=== PATIENT | female | born 1975 | race Caucasian/White ===

== ENCOUNTER → 2021-07-18 | Outpatient (CLI) | payer OTHER ==
[~2021-07-18] MED LIST: NAPROSYN500 MG PO; ZOFRAN ODT4 MG SL
== END | disposition home or self-care (01) ==
LOC: COVID19 15:14
PROVIDERS: ATTEND Internal Medicine
DX: Z11.52 Encounter for screening for COVID-19 (principal)

== ENCOUNTER → 2021-08-07 | Outpatient (CLI) | payer OTHER | END | disposition home or self-care (01) | LOC: COVID19 16:18 | PROVIDERS: ATTEND Internal Medicine | DX: Z11.52 Encounter for screening for COVID-19 (principal) ==

== ENCOUNTER 2021-09-17 04:16 | Emergency (ER) | payer BC ==
[~2021-09-17] VITALS: Ht 160 cm; Wt 68.0 kg
[2021-09-17 04:23] VITALS: BP 156/88
[2021-09-17] MEDS ORDERED: PENICILLIN VK500 MG PO (04:40)
== END 2021-09-17 04:52 | disposition home or self-care (01) ==
LOC: ED 04:16
DX: K04.7 Periapical abscess without sinus (principal); F17.200 Nicotine dependence, unspecified, uncomplicated; Z91.040 Latex allergy status

== ENCOUNTER 2021-10-11 12:25 | Emergency (ER) | payer BC ==
[~2021-10-11] VITALS: Ht 165.1 cm; Wt 63.5 kg
[~2021-10-11 12:25] MED LIST changes: +PENICILLIN VK500 MG PO
[2021-10-11 12:39] VITALS: BP 175/88
[2021-10-11 13:57] LABS: BASO # 0.1 10*3/uL (0.0-0.1); BASO % 0.7 % (0.0-1.0); EOS % 0.5 % (1.0-4.0); HEMATOCRIT 40.9 % (37.0-47.0); LYMPH # 1.4 10*3/uL (1.3-4.4); MEAN CELL VOLUME 86.5 fl (81.0-99.0); MEAN CORPUSCULAR HGB 28.5 pg (27.0-31.0); MONO # 0.5 10*3/uL (0.1-1.0); MONO % 6.8 % (3.0-9.0); NEUT # 5.7 10*3/uL (2.3-7.9); NEUT % 73.9 % (47.0-73.0); PLATELET COUNT AUTOMATED 276 10*3/uL (130-400); RED BLOOD COUNT 4.73 10*6/uL (4.10-5.10); RED CELL DISTRI WIDTH 14.4 % (0-14.5); WHITE BLOOD COUNT 7.7 10*3/uL (4.8-10.8)
[2021-10-11 14:13] LABS: ALBUMIN 3.5 gm/dl (3.1-4.5); ALKALINE PHOSPHATASE 84 U/L (45-117); BUN 9 mg/dl (7-24); CHLORIDE 109 mmol/L (98-107); CREATININE 0.65 mg/dL (0.55-1.02); LIPASE 80 U/L (73-393); POTASSIUM 3.4 mmol/L (3.5-5.1); SGOT/AST 13 IU/L (3-35); SGPT/ALT 23 U/L (12-78); SODIUM 140 mmol/L (136-145); TOTAL PROTEIN 7.5 gm/dL (6.4-8.2)
[2021-10-11 14:13] LABS: BILIRUBIN Negative (Negative); BLOOD 2+ (Negative); CLARITY Clear (Clear); COLOR Yellow (Yellow); GLUCOSE Negative (Negative); KETONE Negative (Negative); LEUKO ESTERASE Negative (Negative); NITRITE Negative (Negative); PH 5.5 (4.5-8.0); SPECIFIC GRAVITY 1.015 (1.001-1.030); UROBILINOGEN 0.2 E.U./dl (0.0-1.0)
[2021-10-11 14:33] LABS: BACTERIA 3+
[2021-10-11 14:34] LABS: EPITHELIAL CELLS 0-2; MUCOUS 1+
[2021-10-11] MEDS ORDERED: PRILOSEC20 M1 PO (15:08)
== END 2021-10-11 15:10 | disposition home or self-care (01) ==
LOC: ED 12:25
PROVIDERS: Emergency Medicine
DX: R10.13 Epigastric pain (principal); R03.0 Elevated blood-pressure reading, without diagnosis of hypertension; Z91.040 Latex allergy status; Z87.891 Personal history of nicotine dependence

== ENCOUNTER 2022-03-20 17:03 | Emergency (ER) | payer BC ==
[~2022-03-20] VITALS: Ht 167.6 cm; Wt 63.5 kg
[~2022-03-20 17:03] MED LIST changes: +PRILOSEC20 M1 PO
[2022-03-20 17:15] VITALS: BP 173/90
[2022-03-20] MEDS ORDERED: OTIPRIO1 ML OT (20:15)
== END 2022-03-20 20:29 | disposition home or self-care (01) ==
LOC: ED 17:03
DX: H60.92 Unspecified otitis externa, left ear (principal)

== ENCOUNTER 2023-09-20 21:44 | Emergency (ER) | payer SELFPAY ==
[~2023-09-20 21:44] MED LIST changes: +OTIPRIO1 ML OT
[2023-09-20 23:26] VITALS: BP 158/92
[2023-09-20] MEDS ORDERED: HYDROXYZINE HCL25 MG PO (23:29)
[2023-09-20] MEDS ORDERED: ZOLOFT25 MG PO (23:29)
== END 2023-09-21 01:38 | disposition home or self-care (01) ==
LOC: ED 21:44
DX: T75.89XA Other specified effects of external causes, initial encounter (principal); X58.XXXA Exposure to other specified factors, initial encounter; Y93.89 Activity, other specified; Y92.009 Unspecified place in unspecified non-institutional (private) residence as the place of occurrence of the external cause; Y99.8 Other external cause status; F17.210 Nicotine dependence, cigarettes, uncomplicated

== ENCOUNTER 2023-09-23 15:09 | Emergency (ER) | payer SELFPAY ==
[~2023-09-23] VITALS: Ht 167.6 cm
[~2023-09-23 15:09] MED LIST changes: +HYDROXYZINE HCL25 MG PO; +ZOLOFT25 MG PO
[2023-09-23 15:16] VITALS: BP 152/87
== END 2023-09-23 16:15 | disposition home or self-care (01) ==
LOC: ED 15:09
DX: Z23 Encounter for immunization (principal); F32.A Depression, unspecified; F41.9 Anxiety disorder, unspecified

== ENCOUNTER 2023-09-27 15:26 | Emergency (ER) | payer SELFPAY ==
[~2023-09-27] VITALS: Ht 167.6 cm; Wt 86.2 kg
[2023-09-27 15:50] VITALS: BP 136/87
== END 2023-09-27 16:01 | disposition home or self-care (01) ==
LOC: ED 15:26
DX: Z23 Encounter for immunization (principal)

== ENCOUNTER 2023-10-04 14:34 | Emergency (ER) | payer SELFPAY ==
[~2023-10-04] VITALS: Ht 162.5 cm; Wt 86.6 kg
[2023-10-04 14:49] VITALS: BP 145/88
== END 2023-10-04 15:34 | disposition home or self-care (01) ==
LOC: ED 14:34
DX: Z23 Encounter for immunization (principal); Z87.891 Personal history of nicotine dependence

== ENCOUNTER 2024-05-29 06:05 | Emergency (ER) | payer SELFPAY ==
[~2024-05-29] VITALS: Ht 167.6 cm; Wt 99.8 kg
[2024-05-29 06:23] VITALS: BP 156/111
[2024-05-29] MEDS ORDERED: AMOX-CLAV 875-1 EACH PO (06:30)
[2024-05-29] MEDS ORDERED: Amoxicillin/Clavulanate Pota 875 MG TAB PO ONE (06:30)
[2024-05-29] MEDS ORDERED: Ketorolac Tromethamine 60 MG/2 ML VIAL IM ONE (06:30)
== END 2024-05-29 06:43 | disposition home or self-care (01) ==
LOC: ED 06:05
DX: K04.7 Periapical abscess without sinus (principal); K02.9 Dental caries, unspecified; R22.0 Localized swelling, mass and lump, head; Z87.891 Personal history of nicotine dependence

== ENCOUNTER 2024-07-28 13:05 | Emergency (ER) | payer SELFPAY ==
[~2024-07-28] VITALS: Wt 79.4 kg
[~2024-07-28 13:05] MED LIST changes: +AMOX-CLAV 875-1 EACH PO
[2024-07-28 13:14] VITALS: BP 157/90
[2024-07-28] MEDS ORDERED: CYCLOBENZAPRINE5 M3 PO (13:18)
[2024-07-28] MEDS ORDERED: Ketorolac Tromethamine 30 MG/ML VIAL IM ONE (13:20)
[2024-07-28] MEDS ORDERED: methylPREDNISolone sod succ 125 MG VIAL IM ONE (13:20)
== END 2024-07-28 13:27 | disposition home or self-care (01) ==
LOC: ED 13:05
DX: S39.012A Strain of muscle, fascia and tendon of lower back, initial encounter (principal); X50.0XXA Overexertion from strenuous movement or load, initial encounter; Y93.89 Activity, other specified; Y92.009 Unspecified place in unspecified non-institutional (private) residence as the place of occurrence of the external cause; Y99.8 Other external cause status